=== PATIENT | female | born 1965 | race Caucasian/White ===

== ENCOUNTER 2019-11-06 06:36 | Inpatient (IN) ==
--- NOTE | 2019-10-05 13:21 | PAT Medication Instructions ---
Medication Instructions Date of Service October 05, 2019 Home Medications Medication Instructions Recorded Eugenio David #1 ea 09/20/19 esomeprazole magnesium 20 mg tablet 20 mg PO QAM ibuprofen 200 mg tablet 200 mg PO Q6H PRN multivitamin,kb-qnzd-udsxfogb 1 tab PO DAILY sumatriptan succinate [Imitrex] 50 mg PO UD PRN ASK your surgeon for instructions ibuprofen 200 mg tablet 200 mg PO Q6H PRN DO NOT take the morning of surgery multivitamin,bk-namv-siefbljz 1 tab PO DAILY Take morning of surgery With a small sip of water, OTHERWISE NOTHING TO EAT OR DRINK AFTER MIDNIGHT: esomeprazole magnesium 20 mg tablet 20 mg PO QAM sumatriptan succinate [Imitrex] 50 mg PO UD PRN (if needed) Other Notes If you have any questions please call us at [phone] or [phone] or [phone] or [phone]
--- NOTE | 2019-10-08 14:29 | Anesthesiology Consultation ---
Date of Service October 08, 2019 Assessment & Plan (1) Encounter for pre-operative examination: Chart Review Chart Review: Acceptable Risk for Surgery and Patient seen in Pre Admission Testing Teaching & Discussion Instructed NPO after midnight before surgery, except medications with 15 cc of water. Medication instructions provided according to the PAT guidelines. History Surgery Operation Date: 11/06/19 08:50 Proposed Procedures p Left Total Knee Replacement - John Cardenas MD Height/Weight Height: 5 ft 11 in Weight: 110 kg Allergies Allergy/AdvReac Type Severity Reaction Status Date / Time No Known Allergies Allergy Verified 10/04/19 15:31 Medications Home Medications Medication Instructions Recorded Confirmed Last Taken Wheeled Walker #1 ea 09/20/19 09/20/19 Unknown esomeprazole magnesium 20 mg 20 mg PO QAM 09/20/19 10/04/19 Unknown tablet,delayed release ibuprofen 200 mg tablet 200 mg PO Q6H PRN 09/20/19 10/04/19 Unknown multivitamin,fr-byqu-axprpumj 1 tab PO DAILY 09/20/19 10/04/19 Unknown sumatriptan succinate [Imitrex] 50 mg PO UD PRN 10/04/19 10/04/19 Unknown Past Medical History Medical History Anxiety hx panic attacks. well managed currently. GERD (gastroesophageal reflux disease) Migraine Nausea and vomiting after administration of anesthetic agent Obesity Osteoarthritis of left knee Exercise / Class Metabolic Activity II 4-5 Yardwork/Stairs/Walk up hill (DENIES CP OR SOB WITH ACTIVITY/ 1 FOS BUT MOVING SLOWLY 2/2 KNEE PAIN) Past Family History Family History Brother FHx: liver cancer, Onset Age: 38 Other No family history of adverse response to anesthesia Past Surgical History Surgical History History of cholecystectomy lap History of dilatation and curettage History of dilatation and curettage S/P laparoscopic hysterectomy with unilateral salpingo-oopherectomy S/P laparotomy removal of ectopic S/P left knee arthroscopy Past Anesthesia History No Hx of Anesthesia Complications (OTHER THAN PONV) and No Family Hx of Anesthesia Complications History of PONV History of PONV (MULTIPLE TIMES) and Hx of Motion Sickness Social History Smoking Status: Former smoker tobacco type: cigarettes Do You Dip or Chew Tobacco: No Smoking End Date: ~2009 Hx Alcohol Use: Yes alcohol intake frequency: holidays/special occasions only Hx Substance Use: No Review of Systems Pt denies any recent chest pain, shortness of breath, palpitations, cough, fever or URI. +recovering from sore throat/fever. Tested negative for flu and strep throat, finishing antibiotics currently. Physical Exam Vital Signs BP: 115/78 P: 78bpm SPO2: 94% RA T: 98.4 F R: 12 ENMT Mouth: + dental restorations (upper R crown); no chipped teeth and no loose teeth Thyromental Distance: > or= 3.5 Finger Breadths (3.5) Mallampati Class: II Neck normal visual inspection; neck extension not limited Respiratory normal respiratory effort Auscultation: lungs clear to auscultation bilaterally Cardiovascular Rate/Rhythm: regular rate and regular rhythm Heart Sounds: no murmur Testing Laboratory Results 10/08/19 14:43 10/08/19 14:43 PT 9.8 Seconds (9.0-12.0) 10/08/19 14:43 INR 1.0 (0.9-1.1) 10/08/19 14:43 APTT 24.3 Seconds (21.0-31.0) 10/08/19 14:43 Blood Type A Positive 10/08/19 14:43 Antibody Screen NEGATIVE 10/08/19 14:43 Electrocardiogram Date: 10/08/19 Findings: + NSR @ (72) Chest X-Ray Date: 10/08/19 Findings: + NAD Echocardiogram Date: 05/19/18 EF: 55-60% Normal LV size and systolic function. Normal RV size and grossly normal function. Mild TR. The right atrium is mildly enlarged. Grade 1 diastolic dysfunction. Stress Test Date: 05/19/18 Type: nuclear Resting EF: 73% post stress This is a normal regadenoson SPECT myocardial perfusion study, indicating that the probability of hemodynamically significant underlying coronary artery disease being present is low.
--- NOTE | 2019-10-08 14:54 | Electrocardiogram Report ---
Test Reason : Blood Pressure : / mmHG Vent. Rate : 072 BPM Atrial Rate : 072 BPM P-R Int : 162 ms QRS Dur : 100 ms QT Int : 398 ms P-R-T Axes : 042 068 060 degrees QTc Int : 435 ms Normal sinus rhythm Normal ECG No previous ECGs available Confirmed by Asif Bustillo ([id number]) on 10/08/2019 2:54:11 PM Referred By: John Cardenas Confirmed By:sAif Bustillo
[2019-10-08 15:17] LABS: Basophils # (auto) 0.05 K/uL (0-0.2); Basophils % (auto) 0.9 %; Eosinophils # (auto) 0.12 K/uL (0-0.5); Eosinophils % (auto) 2.1 %; Hematocrit (blood only) 39.7 % (37-47); Immature Granulocytes # (auto) 0.03 K/uL (0.00-0.02); Immature Granulocytes % (auto) 0.5 %; Lymphocytes # (auto) 1.49 K/uL (1.2-3.4); Mean Corpuscular Hgb Conc 35.3 g/dL (32-36); Mean Platelet Volume 9.5 fL (7.4-10.4); Monocytes # (auto) 0.62 K/uL (0.11-0.59); Monocytes % (auto) 10.8 %; Neutrophils # (auto) 3.42 K/uL (1.4-6.5); Neutrophils % (auto) 59.7 %; Platelet Count 299 K/uL (130-400); RDW Coefficient of Variation 12.3 % (11.5-14.5); RDW Standard Deviation 39.5 fL (36.4-46.3); Red Blood Count 4.51 M/uL (4.2-5.4); White Blood Count 5.73 K/uL (4.8-10.8)
--- NOTE | 2019-10-08 15:24 | XRay Report ---
XR chest Pre-admission PA/Lat HISTORY: 54 years-old Female pat preoperative exam. No acute chest complaints COMPARISON: None available TECHNIQUE: PA and lateral views of the chest FINDINGS: Cardiomediastinal and hilar silhouettes are within normal limits. No pneumothorax, pleural effusion, focal airspace consolidation or overt pulmonary edema. Surgical clip projects over the upper abdomen. Bones of the chest appear grossly intact. Mild convex right curvature of the midthoracic spine. IMPRESSION: No acute process. ACT 112: Negative or not required by law. The above report was generated using voice recognition software. It may contain grammatical, syntax o r spelling errors. Electronically signed by: Maynor Lauren M.D. 10/08/2019 3:23 PM
[2019-10-08 15:25] LABS: BUN Creatinine Ratio 21.7 (10-20); Calcium 9.7 mg/dl (8.5-10.1); Est GFR (African American) 92.6; Est GFR (Non-African American) 79.9; Potassium 3.6 mmol/L (3.5-5.1)
[2019-10-08 15:30] LABS: Partial Thromboplastin Ratio 0.9; Partial Thromboplastin Time 24.3 Seconds (21.0-31.0); Prothrombin Time 9.8 Seconds (9.0-12.0)
--- NOTE | 2019-11-02 23:03 | History and Physical Report ---
DATE OF ADMISSION: 11/06/2019 CHIEF COMPLAINT: Left knee pain, discomfort and stiffness. HISTORY OF PRESENT ILLNESS: The patient is a 54-year-old female who presents for surgical treatment of her left knee. She has a long history of knee problems that has gotten significantly worse over the past 6 years. She has been followed by my partner, Dr. Pop, for quite some time. She has been through extensive conservative treatment including injections as well as various medicines which only help for a couple of weeks and that is it. Pain is global. The more she walks, the more it hurts. She has nighttime pain. It is really affecting her quality of life. She cannot maintain any degree of activity. She has difficulty standing up with her kids. She does have a history of knee arthroscopy done by Dr. Steinberg many years ago. PAST MEDICAL HISTORY: Includes, 1. Gastroesophageal reflux disease. 2. Hiatal hernia. 3. Mild obesity with BMI of 34. PAST SURGICAL HISTORY: Includes, 1. Hysterectomy. 2. Cholecystectomy. 3. Left knee arthroscopy done by Dr. Steinberg many years ago. ALLERGIES: None. CURRENT MEDICATIONS: 1. Nexium p.r.n. 2. Advil. SOCIAL HISTORY: A 54-year-old female. She lives in [place]. 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 She is . Does not smoke or drink. FAMILY HISTORY: Noncontributory. REVIEW OF HISTORY: Negative for diabetes, neurologic problem, vascular problem, bleeding disorders. Denies any chest pain or shortness of breath. No history of DVT or PE. No known bleeding problems. PHYSICAL EXAMINATION: GENERAL: Reveals a healthy, pleasant, middle-aged female. Looks to be in pretty good health. HEENT: Benign. NECK: Supple, no lymphadenopathy. LUNGS: Clear to auscultation. HEART: Has a regular rate and rhythm. ABDOMEN: Soft, nontender, nondistended. EXTREMITIES: Grossly neurovascularly intact except as follows: Examination of the left knee reveals patient walks with a slight bit of a limp. She walks with a pretty stiff knee gait. She has got well-healed arthroscopic portal sites around her knee. She has got a very stiff knee with about a 10-degree flexion contracture and can only flex to about 90 degrees. No pain with hip motion. Moderates size knee effusion. No instability. She is neurologically intact. X-RAYS: X-rays of the left knee were reviewed. It shows advanced left knee DJD. She has got complete loss of her medial joint space. She has got osteophytes both medially and laterally and significant posterior osteophytes. ASSESSMENT: A 54-year-old female with history of left knee arthroscopy in the past with advanced left knee tricompartment degenerative disk disease. She has failed conservative care. She has got very stiff and painful knee that is limiting her activity and she would like to have it fixed. PLAN: We are going to take her to the operating room and do a left total knee replacement. The risks and benefits of this procedure were explained to the patient including but not limited to DVT, PE, , infection, neurological injury, vascular injury, bleeding problem, pain, limited range of motion, stiffness, failure to relieve her symptoms, incomplete relief of symptoms, need for further surgery in the future, fracture, leg length inequality, nerve palsy, need for revision surgery. She is fully aware at her young age that this might need to be redone. She would like to proceed. She is planning on taking the rest of the school year off. She will plan to be discharged to home likely with some home health.
[~2019-11-06 06:36] MED LIST: ACETAMINOPHEN 500 MG TAB PO SCH; BUPIVACAINE LIPOSOME/PF 266 MG, BUPIVACAINE/EPINEPHRINE 50 ML, SODIUM CHLORIDE 0.9% 30 ... INFIL SCH; CEFAZOLIN 2000MG 2,000 MG/15 ML SYR IV SCH; FAMOTIDINE 20 MG TAB PO SCH; GABAPENTIN 900 MG DOSE PO SCH; LR 500ML BOLUS, THEN 15ML/HR IV SCH; LR 60ML/HR IV SCH; METOCLOPRAMIDE HCL 10 MG TABLET PO SCH; SCOPOLAMINE 1.5 MG TDSY TD SCH; TRANEXAMIC ACID 1,000 MG **IV Intra-op IV SCH
--- NOTE | 2019-11-06 06:50 | History & Physical Bridge Note ---
Date of Service November 06, 2019 History & Physical Bridge Note I have examined the patient, reviewed the History & Physical and in the interval since the performance of the History & Physical I have noted the following changes of clinical significance: no changes noted
[2019-11-06] MEDS ORDERED: MIDAZOLAM HCL 1 MG/ML 2ML VIAL ONE (07:16)
[2019-11-06] MEDS ORDERED: fentaNYL citrate 100 MCG/2 ML VIAL ONE (07:16)
[2019-11-06] MEDS ORDERED: BUPIVACAINE 0.5 % 5 MG/1 ML PF 10ML VIAL ONE (07:35)
[2019-11-06] MEDS ORDERED: BUPIVACAINE/EPINEPHRINE 0.25% 1:200,000 30 ML VIAL ONE ×2 (07:35→08:51)
[2019-11-06] MEDS ORDERED: DEXAMETHASONE SOD INJ 4 MG/ML VIAL ONE (07:36)
[2019-11-06] MEDS ORDERED: ONDANSETRON INJ 2 MG/ML 2 ML VIAL IV PRN ×2 (07:59→11:43)
[2019-11-06] MEDS ORDERED: ATROPINE SULFATE 0.1 MG/ML 10ML SYR IV PRN (07:59)
[2019-11-06] MEDS ORDERED: fentaNYL citrate 100 MCG/2 ML VIAL IV PRN (07:59)
[2019-11-06] MEDS ORDERED: ePHEDrine sulfate 50 MG/ML AMP IV PRN (07:59)
[2019-11-06] MEDS ORDERED: BACITRACIN INJ 50,000 UNIT VIAL ONE (08:51)
[2019-11-06] MEDS ORDERED: BUPIVACAINE LIPOSOME 1.3% 266 MG/20 ML VIAL ONE (08:51)
[2019-11-06] MEDS ORDERED: SODIUM CHLORIDE 0.9% PF 50 ML VIAL ONE (08:51)
[2019-11-06] MEDS ORDERED: PROPOFOL IV EMULSION 10 MG/ML 20 ML VIAL IV ONE (09:34)
--- NOTE | 2019-11-06 10:58 | Post Operative Brief Note ---
PG Immediate Post Op with CF Date of Surgery November 06, 2019 Pre & Post Diagnosis Operation Date: 11/06/19 08:50 Pre-Op Diagnosis: Left Knee Degenerative Joint Disease Post-Op Diagnosis: Left Knee Degenerative Joint Disease I identified the patient and participated in the time-out.: Yes Procedure Operation Date: 11/06/19 08:50 Actual Procedures p Left Total Knee Replacement(Left) - John Cardenas MD Surgeon John Cardenas MD Court Administrator Jam, PAC Estimated Blood Loss 50 Findings Consistent with Post-Op Diagnosis Fluids 800 cc Specimens Specimen Description: A. Left Knee Bone and Tissue Drains Damian Catheter (16 croatian attempted to be inserted by MATHEW Sullivan. Resistance met at urethral opening. 12 croatian was then placed without difficulty) Anesthesia Type Spinal MAC Complications none Disposition Accompanied Patient To Recovery: No Disposition: Recovery Room
--- NOTE | 2019-11-06 11:10 | Operative Report ---
Post Operative Report Pre & Post Diagnosis Operation Date: 11/06/19 08:50 Pre-Op Diagnosis: Left Knee Degenerative Joint Disease Post-Op Diagnosis: Left Knee Degenerative Joint Disease I identified the patient and participated in the time-out.: Yes Procedure Operation Date: 11/06/19 08:50 Actual Procedures p Left Total Knee Replacement(Left) - John Cardenas MD Surgeon John Cardenas MD Cord Maker Jam, PAC Estimated Blood Loss 50 Findings Consistent with Post-Op Diagnosis Operative findings revealed advanced left knee tricompartment DJD. She had extensive grade 4 disease in all 3 compartments. She had a varus deformity to her knee. Fairly stiff knee with about a 10 degree flexion contracture only about 100 degrees of flexion. There is no instability. Moderate sized knee joint effusion. She had osteophytes in all 3 compartments. Fluids 800 cc. Specimens Left knee sent for pathology. Drains None. 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 She is had a previous knee arthroscopy many years ago. Over the past 10 years he developed increased pain discomfort and disability in her left knee. She been through extensive conservative treatment which became less successful over time. X-ray revealed remarkably advanced left knee DJD in this young patient. She elected proceed with surgical treatment. Description of Procedure Operative implants consist of: 1. Biomet Vanguard size 70 left posterior box femoral component. 2. Biomet size 75 tibial tray. 3. 12 mm posterior box polyethylene insert. 4. 31 x 8 all poly-patella. The patient was taken to the operating room identified and placed on the operat ing table supine position protectors were properly padded. IV antibiotics arrived by anesthesia team. Spinal anesthetic and abductor canal block had been provided in the holding area. Damian catheter was placed in sterile fashion. Left thigh turn was then placed in the left lower extremity was then prepped and draped in usual sterile fashion. Left leg was elevated exsanguinated with use of an Esmarch and the tourniquet was placed at 300 mmHg. An anterior approach to the left knee was then performed to longitudinal incision centered over the patella. Sharp dissection was carried through subcutaneous tissue down to level the extensor mechanism. A medial parapatellar arthrotomy incision was made. Some subperiosteal dissection was carried out medially. The fat pad resected beneath the patella tendon. Lateral patellofemoral ligament was released. Patella was subluxated laterally and the knee was flexed. The osteophytes taken off distal femur. The ACL and PCL were then released from distal femur and the tibia was subluxated anteriorly. The external tibial alignment jig was then placed in the interface the tibia adjusted 14 mm medially. Proximal tibial cut was made to remove about 2 to 3 mm of bone from the most efficient aspect medial tibial plateau. Some osteophytes were taken off medial and posterior medially. The tibia sized to a size 75. Attention drawn the femur. The distal femur was entered with a sharp drill bit intramedullary canal was suction. A left 5 degree valgus cutting guide was placed. This femoral cutting block was pinned in place but distal femoral cut was made to take an additional 3 mm bone off distal femur. The femur was then sized to a size 70. We downsized this just slightly. The AP cutting block was pinned parallel to the epicondylar axis which was 4 degrees of external rotation. The anterior cut, anterior chamfer, posterior cut, posterior chamfer cuts were made. Box cutting guide was placed in just slight lateral box cut was made. The knee was flexed. The remnants of the medial lateral menisci were excised. The osteophytes were taken off the posterior aspect the femur. Trial femoral component was placed. The tibial tray was pinned in maximum external rotation and the drill and stem punch were used to create defect in proximal tip for the tibial tray. Knee was then trialed and a 12 mm insert fit most appropriately. Attention drawn to the patella. The patella was cleaned of all soft tissues. Patella thickness measured 21 mm in thickness was cut down to 14. Was sized to a size 31 patella. Locals were drilled for 31 patella. Lateral osteophytes removed. Patella button was placed. Knee was taken through range of motion patella tracked nicely with no thumbs test. Attention drawn to place the permanent components. All trial components were removed. Bone plug was placed in the distal femur limit blood loss put a double batch Palacos G cement was mixed. A Biomet Vanguard size 70 left posterior stabilized femoral component, size 75 tibial tray, 12 mm posterior box polyethylene insert, and a 31 x 8 all poly-patella were then cemented in place. Knees brought under full extension total cement hardened. Final cement check was then performed. The pericapsular tissues were injected with total 100 cc of combination of 20 cc of Exparel, 30 cc of normal saline, 50 cc of quarter percent Marcaine with epinephrine. Patient did receive 1 g of tranexamic acid. The wound was irrigated extensively. The tech was then let down for tourniquet time 60 minutes. Hemostasis assured use electrocautery. The extensor mechanism then closed with combination 1 PDS suture #1 Vicryl suture in mievsb-he-[id number] fashion. Extensor mechanism checked found to be intact with subcutaneous tissue then closed with 2 Dexon suture in a buried interrupted fashion skin was closed skin yomaira. Leg was then cleaned dried a sterile dressing composed Xeroform, 4 x 4's, sterile cast padding, Devin bandage were applied. Patient then transferred to the recovery room in stable condition. Patient tolerated procedure well no complications. Roberth Jaramillo my physician medical assistant prn, was present for the entire procedure. He was critical for helping with patient positioning, prepping, draping, retraction, exposure and wound closure and application of the sterile bandage. I attest to the content of the Intraoperative Record and any orders documented therein. Any exceptions are noted below.
--- NOTE | 2019-11-06 11:14 | XRay Report ---
LEFT KNEE 2 VIEWS History: Left total knee arthroplasty. Degenerative arthritis. Postop. FINDINGS: The patient is status post a left total knee arthroplasty. The hardware is intact. No fract ure or dislocation. Skin yomaria are in place. IMPRESSION: Left total knee arthroplasty. No evidence for hardware complication. ACT 112: Negative or not required by law. Electronically signed by: Moustapha Flores M.D. 11/06/2019 11:12 AM
[2019-11-06] MEDS ORDERED: OXYCODONE HCL IR 5 MG TAB (IMMEDIATE RELEASE) PO PRN (11:43)
[2019-11-06] MEDS ORDERED: HYDROmorphone INJ 0.5 MG/0.5 ML SYR IV PRN (11:43)
[2019-11-06] MEDS ORDERED: NALOXONE HCL 0.4 MG/1 ML VIAL/CARP IV PRN (11:43)
[2019-11-06] MEDS ORDERED: METOCLOPRAMIDE HCL INJ 5 MG/ML 2 ML VIAL IV PRN (11:43)
[2019-11-06] MEDS ORDERED: MAGNESIUM HYDROXIDE SUSP 30 ML UDC PO PRN (11:43)
[2019-11-06] MEDS ORDERED: bisacodyL 10 MG SUPP PR PRN (11:43)
[2019-11-06] MEDS ORDERED: SUMAtriptan succinate 50 MG TAB PO PRN (11:43)
--- NOTE | 2019-11-06 12:14 | Anesthesiology Progress Note ---
Date of Service November 06, 2019 Anesthesia Post Procedure Vital Signs Vital Signs: Temp Pulse Pulse Pulse Resp BP Pulse Ox 11/06/19 11:56 68 16 117/75 95 11/06/19 11:30 36.6 C 74 14 121/78 96 11/06/19 11:20 36.7 C 80 18 127/67 98 11/06/19 11:10 75 18 128/71 100 11/06/19 11:03 36.6 C 85 18 118/70 97 11/06/19 07:05 36.5 C 70 20 135/92 97 Pain Intensity Left Knee: Pain Intensity: 0 Transfer of Care Handoff Completed per policy Notes Mental Status: alert / awake / arousable Patient Amnestic to Procedure: Yes Nausea / Vomiting: adequately controlled Pain: adequately controlled Airway Patency, RR, SpO2: stable & adequate BP & HR: stable & adequate Hydration State: stable & adequate Anesthetic Complications: no major complications apparent
[2019-11-06] MEDS: ACETAMINOPHEN 500 MG TAB PO SCH ×2 (13:07→21:34)
[2019-11-06] MEDS: SODIUM CHLORIDE 0.9% 1000ML 1,000 ML IV SCH ×2 (13:08→20:45)
[2019-11-06] MEDS: KETOROLAC 30 MG/ML VIAL IV SCH ×2 (13:09→19:06)
--- NOTE | 2019-11-06 14:14 | Progress Notes ---
DATE: 11/06/2019 SUBJECTIVE: 54-year-old female postop from a left knee replacement. She is doing well. Really not having any pain yet. No chest pain or shortness of breath. Not feeling dizzy or lightheaded. OBJECTIVE: VITAL SIGNS: Temperature 36.6. Vital signs stable. GENERAL: Shows a pleasant, middle-aged female. She is sitting up in bed and talking to her . Looks comfortable. LUNGS: Clear to auscultation. HEART: Regular rate and rhythm. ABDOMEN: Soft, nontender, nondistended. EXTREMITIES: Grossly neurovascularly intact except as follows: Examination of the left lower extremity reveals the leg to be well aligned. She is just starting to be able to wiggle her toes. She has brisk refill and good distal pulse. Toes are warm. X-RAYS: X-rays of the left knee from recovery room reviewed. It shows a cemented posterior stabilized total knee arthroplasty. Components looked to be in acceptable position. It is a bit of a rotated film. ASSESSMENT: 54-year-old white female postop from a left knee replacement. She is doing well. Nerve function is just returning. Not having any pain yet. PLAN: 1. DVT prophylaxis including thigh-high TEDs, SCDs, and aspirin twice a day. 2. PT/OT. Weight bear as tolerated. Left total knee protocol. 3. Pain control, doing well with current pain regimen. We will obviously have to adjust her meds as the spinal wears off. 4. IV antibiotics x24 hours. 5. Disposition: She is planning to be discharged to home likely with some home health once adequately recovered and medically stable.
[2019-11-06] MEDS: CHECK SCOPOLAMINE PATCH PLACEMENT SCH (15:12)
[2019-11-06] MEDS ORDERED: TRANEXAMIC ACID / 0.7% NACL 1,000 MG/100 ML BAG IV SCH (17:01)
[2019-11-06] MEDS: FERROUS GLUCONATE 324 MG TAB PO SCH (17:44)
[2019-11-06] MEDS: ASCORBIC ACID 500 MG TAB PO SCH (17:44)
[2019-11-06] MEDS: CEFAZOLIN 2000MG 2,000 MG/15 ML SYR IV SCH (17:53)
[2019-11-06] MEDS: TAPENTADOL HCL ER 50 MG TABCR PO SCH (20:43)
[2019-11-06] MEDS: DOCUSATE SODIUM 100 MG CAP PO SCH (20:43)
[2019-11-06] MEDS: ASPIRIN 81 MG ECTAB PO SCH (20:43)
[2019-11-06] MEDS ORDERED: SENNA 8.6 MG TAB PO SCH (21:00)
[2019-11-07] MEDS: KETOROLAC 30 MG/ML VIAL IV SCH ×3 (00:02→13:37)
[2019-11-07] MEDS: CEFAZOLIN 2000MG 2,000 MG/15 ML SYR IV SCH (00:02)
[2019-11-07] MEDS: CHECK SCOPOLAMINE PATCH PLACEMENT SCH ×3 (00:02→15:52)
[2019-11-07 05:48] LABS: Hematocrit (blood only) 34.3 % (37-47); Mean Corpuscular Hemoglobin 31.2 pg (25-34); Mean Corpuscular Volume 89.1 fL (80-100); Mean Platelet Volume 9.5 fL (7.4-10.4); Platelet Count 233 K/uL (130-400); RDW Coefficient of Variation 12.5 % (11.5-14.5); RDW Standard Deviation 40.2 fL (36.4-46.3); Red Blood Count 3.85 M/uL (4.2-5.4); White Blood Count 9.13 K/uL (4.8-10.8)
[2019-11-07] MEDS: ACETAMINOPHEN 500 MG TAB PO SCH ×2 (06:21→13:36)
[2019-11-07 06:26] LABS: BUN Creatinine Ratio 20.6 (10-20); Calcium 9.1 mg/dl (8.5-10.1); Creatinine Clr Calc Pharmacy 118.4 ml/min; Est GFR (African American) 104.5; Est GFR (Non-African American) 90.2
[2019-11-07] MEDS: ASCORBIC ACID 500 MG TAB PO SCH (08:53)
[2019-11-07] MEDS: ASPIRIN 81 MG ECTAB PO SCH (08:53)
[2019-11-07] MEDS: DOCUSATE SODIUM 100 MG CAP PO SCH (08:53)
[2019-11-07] MEDS: FERROUS GLUCONATE 324 MG TAB PO SCH (08:53)
[2019-11-07] MEDS: TAPENTADOL HCL ER 50 MG TABCR PO SCH (08:53)
[2019-11-07] MEDS ORDERED: PANTOprazole 40 MG TAB PO SCH (09:00)
[2019-11-07] MEDS ORDERED: MULTIVITAMIN TAB PO SCH (09:00)
[2019-11-07] MEDS ORDERED: MULTIVITAMIN TX IRON MINERALS PO SCH (09:00)
--- NOTE | 2019-11-07 17:59 | Progress Notes ---
DATE: 11/07/2019 SUBJECTIVE: A 54-year-old white female postop day 1 from left knee replacement. She is doing well. Pain has been manageable. Therapy went well. Denies any chest pain or shortness of breath. Not feeling dizzy or lightheaded. She wants to go home. OBJECTIVE: VITAL SIGNS: Temperature 36.9. Vital signs are stable. GENERAL: Shows a pleasant, middle-aged female. She is sitting up in bed, looks comfortable. EXTREMITIES: Examination of the left leg reveals the leg to be well aligned. Dressing is clean, dry and intact. She can dorsiflex and plantarflex her foot appropriately. She is neurologically intact. LABORATORY DATA: Hemoglobin 12.0, hematocrit 34.3. Electrolytes are stable. ASSESSMENT: A 54-year-old female postoperative day 1 from left knee replacement, doing pretty well. Pain is controlled. Therapy went well. She is neurologically intact. PLAN: 1. DVT prophylaxis including thigh-high TEDs, SCDs, and aspirin twice a day. 2. PT/OT. Weight bear as tolerated. Left total knee protocol. 3. Pain control, doing pretty well with current pain regimen. 4. Disposition: Plan to discharge to home this evening with home health.
--- NOTE | 2019-11-12 19:05 | Discharge Summary (DS) ---
ADMITTING PHYSICIAN AND SURGEON: Dr. Cardenas. ADMITTING DIAGNOSIS: Left knee degenerative joint disease. SURGERY PERFORMED: Left total knee arthroplasty. SECONDARY DIAGNOSES: Gastroesophageal reflux disease, hiatal hernia, mild obesity. CONSULTS: None obtained. HISTORY AND PHYSICAL EXAMINATION: Well documented in the patient's chart. HOSPITAL COURSE: The patient was admitted on 11/06/2019 and underwent total knee arthroplasty, tolerated the procedure well. There were no complications. She was transferred to the PACU postoperatively and later to the orthopedic floor for further care. She was given Ancef for antibiotic prophylaxis, ALYCE stockings, SCDs and aspirin for DVT prophylaxis. Hemoglobin, hematocrit and vital signs were monitored during her hospital stay and remained stable. She did not require any blood transfusions. There were no complications. By postoperative day 3, she was tolerating a regular diet, pain was controlled with oral pain medicine. She was participating in physical therapy. Postop day 3, she was discharged home, set up with home health services. She was given printed discharge instructions as well as new prescriptions for extra strength Tylenol and aspirin. Continue her home medicines. Continue physical therapy, weightbearing as tolerated, ALYCE stockings. Follow up approximately 2 weeks postop or sooner if there are any problems or concerns.
== END 2019-11-07 17:12 | disposition home health service (06) | DRG 470 ==
LOC: ASU 06:36 → 3E 06:36 → OBSVTOIN 11:02